=== PATIENT | male | born 1990 | race Caucasian/White ===

== ENCOUNTER → 2017-08-03 09:51 | Outpatient (CLI) | payer SELFPAY ==
[2017-08-03 10:15] LABS: Basophils % 0.4 % (0.1-2.0); Eosinophils # 0.3 K/mm3 (0.0-0.4); Eosinophils % 3.4 % (0.1-12.0); Hematocrit 49.3 % (42.0-52.0); Hemoglobin 15.8 g/dL (14.1-18.0); Lymphocytes # 1.1 K/mm3 (0.7-4.5); Lymphocytes % 11.9 K/mm3 (10-50); Mean Corpuscular HGB Conc 32.1 g/dL (31.8-35.4); Mean Corpuscular Hemoglobin 29.5 pg (27.0-31.2); Mean Corpuscular Volume 91.7 fl (80-94); Mean Platelet Volume 7.9 fl (7.4-10.4); Monocytes # 0.6 K/mm3 (0.1-1.0); Monocytes % 6.6 % (1.7-9.3); Neutrophils % 77.6 % (37.0-80.0); Platelet Count 143 K/mm3 (142-424); Red Blood Count 5.38 M/mm3 (4.60-6.20); Red Cell Distribution Width 12.1 % (11.5-17.5)
== END ==
PROVIDERS: Visit Provider Nurse Practitioner Family
DX: R06.02 Shortness of breath (principal)
CPT/HCPCS: 85025

== ENCOUNTER → 2019-10-31 09:41 | Outpatient (CLI) | payer BC, SELFPAY ==
[2019-10-31 10:22] LABS: Basophils % 0.7 % (0.1-2.0); Eosinophils # 0.4 K/mm3 (0.0-0.4); Eosinophils % 5.7 % (0.1-12.0); Hematocrit 46.3 % (42.0-52.0); Hemoglobin 16.1 g/dL (14.1-18.0); Lymphocytes # 1.2 K/mm3 (0.7-4.5); Mean Corpuscular HGB Conc 34.8 g/dL (31.8-35.4); Mean Corpuscular Hemoglobin 31.2 pg (27.0-31.2); Mean Corpuscular Volume 89.7 fl (80-94); Mean Platelet Volume 8.1 fl (7.4-10.4); Monocytes # 0.5 K/mm3 (0.1-1.0); Neutrophils # 4.6 K/mm3 (1.8-7.8); Neutrophils % 67.7 % (37.0-80.0); Platelet Count 155 K/mm3 (142-424); Red Blood Count 5.16 M/mm3 (4.60-6.20); Red Cell Distribution Width 12.5 % (11.5-17.5); White Blood Count 6.7 K/mm3 (4.8-10.8)
[2019-11-01 18:36] LABS: Covid-19 Nasal PCR Sendout Lex NOT DETECTED
== END ==
PROVIDERS: PCP Family Medicine; Visit Provider Family Medicine
DX: Z03.818 Encounter for observation for suspected exposure to other biological agents ruled out (principal)
CPT/HCPCS: 36415; 85025; U0004

== ENCOUNTER → 2020-02-10 13:35 | Outpatient (CLI) | payer BC, SELFPAY ==
[2020-02-12 09:00] LABS: Covid-19 Nasal PCR Sendout UK Not Detected
== END ==
PROVIDERS: PCP Family Medicine; Referring Provider Family Medicine; Visit Provider Family Medicine
DX: Z03.818 Encounter for observation for suspected exposure to other biological agents ruled out (principal)
CPT/HCPCS: U0003

== ENCOUNTER → 2020-02-13 11:57 | Outpatient (CLI) | payer BC, SELFPAY ==
[2020-02-13 13:14] LABS: Adenovirus,PCR Not Detected (NotDetected); Bordetella Pertussis Not Detected (NotDetected); Chlamydophila Pneumoniae, PCR Not Detected (NotDetected); Coronavirus 19, PCR Not Detected (NotDetected); Coronavirus 229E Not Detected (NotDetected); Coronavirus NL63 Not Detected (NotDetected); Coronavirus OC43 Not Detected (NotDetected); Coronovirus HKU1,PCR Not Detected (NotDetected); Human Metapneumovirus Not Detected (NotDetected); Influenza A, PCR Not Detected (NotDetected); Influenza AH1, 2009 Not Detected (NotDetected); Influenza AH1, PCR Not Detected (NotDetected); Influenza AH3,PCR Not Detected (NotDetected); Influenza B, PCR Not Detected (NotDetected); Mycoplasma Pneumoniae, PCR Not Detected (NotDetected); Parainfluenza 1, PCR Not Detected (NotDetected); Parainfluenza 2, PCR Not Detected (NotDetected); Parainfluenza 3, PCR Not Detected (NotDetected); Parainfluenza 4, PCR Not Detected (NotDetected); Respiratory Syncytial Virus Not Detected (NotDetected); Rhinovirus/Enterovirus Not Detected (NotDetected)
[2020-02-13 13:35] LABS: Basophils % 0.3 % (0.1-2.0); Eosinophils % 0.1 % (0.1-12.0); Hematocrit 51.7 % (42.0-52.0); Hemoglobin 17.7 g/dL (14.1-18.0); Lymphocytes # 0.8 K/mm3 (0.7-4.5); Lymphocytes % 8.9 % (10-50); Mean Corpuscular HGB Conc 34.2 g/dL (31.8-35.4); Mean Corpuscular Hemoglobin 31.4 pg (27.0-31.2); Mean Corpuscular Volume 91.8 fl (80-94); Mean Platelet Volume 8.3 fl (7.4-10.4); Monocytes # 0.6 K/mm3 (0.1-1.0); Monocytes % 6.8 % (1.7-9.3); Neutrophils # 7.8 K/mm3 (1.8-7.8); Neutrophils % 83.9 % (37.0-80.0); Platelet Count 138 K/mm3 (142-424); Red Blood Count 5.63 M/mm3 (4.60-6.20); Red Cell Distribution Width 12.4 % (11.5-17.5); White Blood Count 9.3 K/mm3 (4.8-10.8)
[2020-02-13 15:07] LABS: Chloride 100 mmol/L (98-107); Sodium 135 mmol/L (136-145)
[2020-02-13 15:10] LABS: Blood Urea Nitrogen 20 mg/dl (9-20); Calcium 9.7 mg/dl (8.4-10.2); Carbon Dioxide 27 mmol/L (22.0-30.0); Estimated Glomerular Filt Rate 78 ml/min (>60); GFR (African American) 94 ML/MIN (>60); Glucose 89 mg/dl (74-100)
== END ==
PROVIDERS: PCP Family Medicine; Visit Provider Family Medicine
DX: Z03.818 Encounter for observation for suspected exposure to other biological agents ruled out (principal)
CPT/HCPCS: 36415; 80048; 85025; 87581; 87633; 87798

== ENCOUNTER → 2020-03-16 13:40 | Outpatient (CLI) | payer BC, SELFPAY ==
--- NOTE | 2020-03-16 13:42 | XR_ITS ---
PROCEDURE: XR CHEST PORTABLE CLINICAL HISTORY: COVID TESTING Cough COMPARISON: No exams were available for comparison FINDINGS: The cardiomediastinal silhouette and pulmonary vascularity are within normal limits. The lungs are clear without infiltrates, suspicious nodules, or pleural effusions. No acute bony abnormalities. IMPRESSION: No acute findings. Dictated by: Darrin Fisher MD 03/16/2020 14:19 Darrin Fisher MD in [place] 03/16/2020 14:19
[2020-03-16 14:13] LABS: Adenovirus,PCR Not Detected (NotDetected); Bordetella Pertussis Not Detected (NotDetected); Chlamydophila Pneumoniae, PCR Not Detected (NotDetected); Coronavirus 19, PCR Not Detected (NotDetected); Coronavirus 229E Not Detected (NotDetected); Coronavirus NL63 Not Detected (NotDetected); Coronavirus OC43 Not Detected (NotDetected); Coronovirus HKU1,PCR Not Detected (NotDetected); Human Metapneumovirus Not Detected (NotDetected); Influenza A, PCR Not Detected (NotDetected); Influenza AH1, 2009 Not Detected (NotDetected); Influenza AH1, PCR Not Detected (NotDetected); Influenza AH3,PCR Not Detected (NotDetected); Influenza B, PCR Not Detected (NotDetected); Mycoplasma Pneumoniae, PCR Not Detected (NotDetected); Parainfluenza 1, PCR Not Detected (NotDetected); Parainfluenza 2, PCR Not Detected (NotDetected); Parainfluenza 3, PCR Not Detected (NotDetected); Parainfluenza 4, PCR Not Detected (NotDetected); Respiratory Syncytial Virus Not Detected (NotDetected); Rhinovirus/Enterovirus Not Detected (NotDetected)
[2020-03-16 14:29] LABS: Basophils % 0.9 % (0.1-2.0); Eosinophils # 0.3 K/mm3 (0.0-0.4); Hematocrit 48.5 % (42.0-52.0); Hemoglobin 16.3 g/dL (14.1-18.0); Lymphocytes # 1.4 K/mm3 (0.7-4.5); Lymphocytes % 31.2 % (10-50); Mean Corpuscular HGB Conc 33.6 g/dL (31.8-35.4); Mean Corpuscular Hemoglobin 30.6 pg (27.0-31.2); Mean Corpuscular Volume 91.1 fl (80-94); Mean Platelet Volume 7.8 fl (7.4-10.4); Monocytes # 0.2 K/mm3 (0.1-1.0); Monocytes % 5.1 % (1.7-9.3); Neutrophils # 2.5 K/mm3 (1.8-7.8); Neutrophils % 56.8 % (37.0-80.0); Platelet Count 159 K/mm3 (142-424); Red Blood Count 5.33 M/mm3 (4.60-6.20); Red Cell Distribution Width 13.2 % (11.5-17.5); White Blood Count 4.5 K/mm3 (4.8-10.8)
== END ==
PROVIDERS: PCP Family Medicine; Visit Provider Family Medicine
DX: Z20.822 Contact with and (suspected) exposure to COVID-19 (principal)
CPT/HCPCS: 71045; 85025; 87581; 87633; 87798

== ENCOUNTER 2020-11-06 08:30 | Outpatient (RCR) | payer BC, SELFPAY ==
--- NOTE | 2020-10-10 17:09 | HMH.PTOPEV ---
PT Outpatient Evaluation Rehab PT Outpatient Evaluation Start: 10/10/20 15:56 Freq: Status: Active Protocol: Document 10/10/20 15:57 LIVAN (Rec: 10/10/20 17:09 LIVAN [id number]) Electronically Signed By Dennys Biggs PT 10/10/20 15:57 Outpatient Therapy Subjective History Subjective History This is the initial Physical Therapy evaluation for Jose R Ortez. Pt reports to PT for c/o R shoulder pain. Pt reports pain began approximately 1-2 months ago when he began playing recreational softball. Pt reports he began having global R shoulder pain, but noted one throw from the outfield, he felt sharp pain shoot from shoulder to the hand. Pt also states he began having elbow pain shortly after his shoulder started hurting. Pt reports without activity he has no shoulder pain. Pt also states he feels he has a catch when he raises his arm . Chief Complaint Pain,Catches/Locks Symptom Type Ache,Throb Symptoms Relieved By Rest/Positioning,Ice,OTC Meds Symptoms Aggravated By Physical Activity,Lifting Prior Functional Limitations None Current Functional Limitations Recreation Activity Symptom Description Intermittent Level of pain today (0-10) 0 Pain scale - at its best (0-10) 0 Pain scale - at its worst (0-10) 8 Shoulder/Elbow Eval Shoulder Objective Measurements Palpation Tenderness tenderness shoulder exam standard right tenderness over the bicipital tendon right shoulder exam standard Shoulder Palpation Findings Tenderness,Trigger Point Shoulder ROM Bilateral pain with active ROM shoulder exam right standard full ROM shoulder exam standard bilateral Shoulder MMT Right Shoulder Abduction Strength Grade 4 Good Shoulder External Rotation Strength 4 Good Grade Supraspinatus Strength Grade 4- Good- Shoulder Strength Patient Testing Sitting Position Shoulder Special Tests Shoulder Cross-Over Impingement Test Positive Right Shoulder Empty Can (Supraspinatus) Test Positive Right Shoulder Castano-Jagjit Impingement Positive Right Test Shoulder Low Relocation Test Positive Right Shoulder Posterior Load a
== END 2020-11-06 08:35 | disposition home or self-care (01) ==
LOC: PT 08:30
PROVIDERS: PCP Family Medicine; Visit Provider Physician Assistant
DX: M25.511 Pain in right shoulder (principal); M77.01 Medial epicondylitis, right elbow
CPT/HCPCS: 97014; 97033; 97110; 97163; 97164; G0283

== ENCOUNTER → 2021-01-05 09:27 | Outpatient (CLI) | payer BC, SELFPAY ==
[2021-01-05 12:26] LABS: Basophils # 0.1 K/mm3 (0-0.2); Basophils % 0.9 % (0.1-2.0); Eosinophils # 0.3 K/mm3 (0.0-0.4); Eosinophils % 4.6 % (0.1-12.0); Hematocrit 50.4 % (42.0-52.0); Hemoglobin 16.2 g/dL (14.1-18.0); Lymphocytes # 1.6 K/mm3 (0.7-4.5); Lymphocytes % 24.4 % (10-50); Mean Corpuscular HGB Conc 32.2 g/dL (31.8-35.4); Mean Corpuscular Hemoglobin 30.7 pg (27.0-31.2); Mean Corpuscular Volume 95.5 fl (80-94); Mean Platelet Volume 8.8 fl (7.4-10.4); Monocytes # 0.3 K/mm3 (0.1-1.0); Monocytes % 5.1 % (1.7-9.3); Neutrophils # 4.1 K/mm3 (1.8-7.8); Neutrophils % 64.9 % (37.0-80.0); Platelet Count 164 K/mm3 (142-424); Red Blood Count 5.27 M/mm3 (4.60-6.20); Red Cell Distribution Width 12.5 % (11.5-17.5); White Blood Count 6.3 K/mm3 (4.8-10.8)
== END ==
PROVIDERS: PCP Family Medicine; Visit Provider Physician Assistant
DX: Z20.822 Contact with and (suspected) exposure to COVID-19 (principal)
CPT/HCPCS: 85025; C9803; U0003; U0005

== ENCOUNTER → 2021-03-20 10:09 | Outpatient (CLI) | payer BC, SELFPAY | PROVIDERS: Visit Provider Nurse Practitioner | DX: Z20.822 Contact with and (suspected) exposure to COVID-19 (principal) | CPT/HCPCS: C9803; U0003; U0005 ==

== ENCOUNTER 2024-12-12 14:39 | Outpatient (CLI) | payer OTHER, SELFPAY ==
--- OUTSIDE RECORDS SUMMARY | 2023-07-08 05:15 | XMS_ITS ---
Author Organization [facility] Address [address] [facility] [place] [id number] Care Team Providers Care Toy Designer Name Role Phone Sanford Bustamante Primary Care Provider [phone] Smith Murphy Unavailable [phone] Allergies No Known Allergies Results Component Value Reference Range Notes CBC Venipuncture (in house) Reviewed date:07/08/2023 03:10:16 PM Interpretation: Performing Lab: Notes/Report: wbc 4.4 3.5 - 10 lymph 32.8 15 - 50 mid 7.0 2 - 15 gran 60.2 35 - 80 rbc 5.49 3.5 - 5.5 hgb 16.8 11.5 - 16.5 hct 52.5 35 - 55 mcv 95.5 75 - 100 mch 30.5 25 - 35 mchc 32.0 31 - 38 platlet 131 100 - 400 REASON FOR VISIT sore throat, ear pain, headache, congestion Medications Medication SIG (Take, Route, Frequency, Duration) Notes Start Date End Date Status dexAMETHasone 2 MG 1 tablet Orally ever y 12 hrs; Duration: 5 day(s) 07/08/2023 Active Bactrim DS 800-160 MG 1 tablet Orally Tw o times a day; Duration: 21 days 05/22/2023 Not-Taking Triamcinolone Acetonide 0.1 % 1 application Externally Two times a day 05/22/2023 Active Albuterol Sulfate HFA 108 (90 Base) MCG/ACT 1-2 puff(s) inhaled every 6 hours, prn 05/29/2022 Active Flonase Allergy Relief 50 MCG/ACT 1 spray in each nostril Nasally Once a day 10/24/2022 Active Problems Problem Type SNOMED Code ICD Code Onset Dates Problem Status W/U Status Risk Notes Problem Allergic rhinitis (47019792) Allergic rhinitis, unspecified seasonality, unspecified trigger (J30.9) Active confirmed Vital Signs Blood pressure systolic 124 mm Hg 07/08/19 24 Blood pressure diastolic 82 mm Hg 024 Heart Rate 70 /min 07/08/2023 Height 74.25 in 07/08/2023 Weight 187.8 lbs 07/08/2023 BMI 23.95 kg/m2 07/08/2023 Encounters Encounter Location Date Provider Diagnosis [facility] [address] [facility] [address] [place] [id number] 07/08/2023 Smith Murphy Sore throat J02.9 an d Allergic rhinitis, unspecified seasonality, unspecified trigger J30.9 Assessments Encounter Date Diagnosis (ICD Code) Assessment Notes Treatment Notes Treatment Clinical Notes Section Notes 07/08/2023 Sore throat (ICD-10 - J02.9) 07/08/2023 Allergic rhinitis, unspecified seasonality, unspecified trigger (ICD-10 - J30.9) Plan Of Treatment Medication Medication Name Sig Start Date Stop Date Notes dexAMETHasone 2 MG 1 tablet Orally ever y 12 hrs; Duration: 5 day(s) 07/08/2023 Next Appt Details Follow Up: via phone to brenden conroy progress, Reason: Provider Name:Smith Ang ry, 12/12/2024 02:15:00 PM, [address] [facility] [address], [address], [place], [id number], Progress Notes * Juancarlos ORTEZB: 9 (33 yo M)Acc No.[id number]:07/08/2023 Progress Notes Patient: Jose R WATERMAN Provider: Isiah Murphy M.D. :1990 A ge:32 Y S ex:Male Date:07/08/2023 Address:[address] [place] [address], [place] [id number] Pcp:Sanford Bustamante Subjective: * Chief Complaints: * 1 . Sore throat, ear pain, headache, congestion. * HPI: E NT/respiratory: 32 year old male presents with c/o sore throat P t complains of sore throat for about a week. Asscoiated with nasal congestion and ear pain. Pt states symptoms have improved a little bit today but lt ear and lt side of throat are sore. * ROS: D ERMATOLOGY: no R bhavik. n o H julian. G ASTROENTEROLOGY: no N ausea. n o V omiting. U ROLOGY: no D ifficulty urinating. n o B lood in urine. * Medical History: M edical History Verified. * Surgical History: D enies Past Surgical History. * Hospitalization/Major Diagno stic Procedure: [facility] - foreign object in eye 08/22/2015. * Family History: F ather: alive, diagnosed with Hypertension. M other: alive. P aternal Grand Father: . P aternal Grand Mother: . M aternal Grand Father: alive, diagnosed with Diabetes, Cancer. M aternal Grand Mother: alive. 1 brother(s) - healthy. 2 daughter(s) - healthy. . * Social History: C URRENT TOBACCO USE: No . C affeine: yes, frequency: coffee, tea, soda. Home smoke detector use: yes. Marital Status: . Alcohol: Yes, Type: , Frequency: ,Years: , Determination:, occasional. Sexually active: yes. * Medications: T aking Albuterol Sulfate HFA 108 (90 Base) MCG/ACT Aerosol Solution 1-2 puff(s) inhaled every 6 hours, prn , Taking Flonase Allergy Relief 50 MCG/ACT Suspension 1 spray in each nostril Nasally Once a day , Taking Triamcinolone Acetonide 0.1 % Cream 1 application Externally Two times a day , Not-Taking Bactrim DS 800-160 MG Tablet 1 tablet Orally Two times a day , Discontinued QUEtiapine Fumarate 25 MG Tablet 1 tab(s) orally once daily at bed time , Discontinued Promethazine-DM 6.25-15 MG/5ML Syrup 5 ml Orally every 6 hrs as needed , Discontinued Benzonatate 200 MG Capsule 1 capsule Orally Three times a day as needed , Medication List reviewed and reconciled with the patient * Allergies: N .K.D.A. Objective: * Vitals: W t:187.8, Temp:98.2, BP:124/82, HR:70, O2 Sat:98% on RA, Nurse:cyndi, Ht: 74.25, BMI:23.95. * Examination: E NT/Respiratory: General Appearance: N AD. E yes: P ERRLA, sclera clear. E ars: a uditory canals normal bilaterally, TM's WNL. O ral cavity : m inimal erythema without exudate on pharynx. N whitney : n o cervical lymphadenopathy. H eart : R RR, normal S1 S2. L ungs: c lear to auscultation bilaterally. Assessment: * Assessment: 1. S ore throat - J02.9 (Primary) 2 . A llergic rhinitis, unspecified seasonality, unspecified trigger - J30.9 Plan: * Treatment: Value Reference Range w bc 4.4 3.5 - 10 * l ymph 32.8 15 - 50 * m id 7.0 2 - 15 * g ran 60.2 35 - 80 * r bc 5.49 3.5 - 5.5 * h gb 16.8 11.5 - 16.5 * h ct 52.5 35 - 55 * m cv 95.5 75 - 100 * m ch 30.5 25 - 35 * m chc 32.0 31 - 38 * p latlet 131 100 - 400 * Gisele Christian 07/08/2023 9:14:42 AM > , Provider reviewed results while patient in office. 2.?Allergic rhinitis, unspecified seasonality, unspecified trigger? Start dexAMETHasone Tablet, 2 MG, 1 tablet, Orally, every 12 hrs, 5 day(s), 10 Tablet, Refills 0. ? * Procedure Codes: 8 5025 CBC WITH AUTO DIFF, 58963 VENIPUNCT, ROUTINE* * Follow Up: v ia phone to report progress * Images: Billing Information: * Visit Code: 45085 Office Visit, Est Pt., Level 3. * Procedure Codes: 36483 CBC WITH AUTO DIFF. 79804 VENIPUNCT, ROUTINE*. * Electronic signature of Payton Murphy MD on 12/12/2024 at 02:46 PM EDT Sign off status: Pending * Provider: Isiah Murphy M.D. Date: 0 07/08/2023 Generated for Carmen fairchild/Faxing/eTransmitting on: 1 02:46 PM EDT History and Physical Notes * HPI (History of Present Illness) Category Sub-Category Detail Notes Category Not es ENT/respiratory sore throat Pt complains of sore throat for about a week. Asscoiated with nasal congestion and ear pain. Pt states symptoms have improved a little bit today but lt ear and lt side of throat are sore Examination Category Sub-Category Detail Notes Category Not es ENT/Respiratory Oral cavity : minimal erythema without exudate on pharynx Ears: auditory canals norm al bilaterally, TM's WNL Neck : no cervical lymphade nopathy Heart : RRR, normal S1 S2 Lungs: clear to auscultatio n bilaterally General Appearance: NAD Eyes: PERRLA, sclera clear
--- OUTSIDE RECORDS SUMMARY | 2023-09-11 07:30 | XMS_ITS ---
Author Organization [facility] Address [address] [facility] [address] [place] [id number] Care Team Providers Care Banquet Bartender Name Role Phone Sanford Bustamante Primary Care Provider [phone] Smith Murphy Unavailable [phone] Allergies No Known Allergies Results Component Value Reference Range Notes Urinalysis - Inhouse Reviewed date:09/11/2023 12:07:07 PM Interpretation: Performing Lab: Notes/Report: Color/Clarity dark yellow/clear Leuk neg Nitrite neg Urobili 3.2 Protein trace pH 6.5 Blood neg Sp. Gr. 1.025 Ketone neg Bili neg Gluc neg REASON FOR VISIT CDL , Physical Medications Medication SIG (Take, Route, Frequency, Duration) Notes Start Date End Date Status Flonase Allergy Relief 50 MCG/ACT 1 spray in each nostril Nasally Once a day 10/24/2022 Active Albuterol Sulfate HFA 108 (90 Base) MCG/ACT 1-2 puff(s) inhaled every 6 hours, prn 05/29/2022 Active Vital Signs Blood pressure systolic 120 mm Hg 09/11/19 24 Blood pressure diastolic 80 mm Hg 024 Heart Rate 65 /min 09/11/2023 Height 74.25 in 09/11/2023 Weight 192.6 lbs 09/11/2023 BMI 24.56 kg/m2 09/11/2023 Encounters Encounter Location Date Provider Diagnosis [facility] [address] [place] [id number] 09/11/2023 Smith Murphy 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 :1990 A ge:32 Y S ex:Male Date:09/11/2023 Address:[address] [place] [address] [address], [facility] Pcp:Sanford Bustamante Subjective: * Chief Complaints: * 1 . CDL , Physical. 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 * ROS: D ERMATOLOGY: no R bhavik. n o H julian. G ASTROENTEROLOGY: no N ausea. n o V omiting. U ROLOGY: no D ifficulty urinating. n o B lood in urine. * Medical History: M edical History Verified. * Surgical History: D enies Past Surgical History. * Hospitalization/Major Diagno stic Procedure: H ER - foreign object in eye 08/22/2015. [...] each nostril Nasally Once a day , Discontinued Triamcinolone Acetonide 0.1 % Cream 1 application Externally Two times a day , Discontinued dexAMETHasone 2 MG Tablet 1 tablet Orally every 12 hrs , Discontinued Bactrim DS 800-160 MG Tablet 1 tablet Orally Two times a day , Medication List reviewed and reconciled with the patient * Allergies: N .K.D.A. Objective: * Vitals: W t:192.6, Temp:98.3, BP:120/80, HR:65, Nurse:[place], Ht: 74.25, Visual Acuity: Left eye:20/13, Right eye:20/13, Both eyes:20/10, Color:normal, Comments:Without glasses, BMI:24.56. * Examination: G eneral Examination: General Appearance: N AD. H EENT: u nremarkable.?Oral cavity: n o lesions, mucosa moist and WNL, no erythema. N whitney: s upple, no lymphadenopathy. C hest: n ormal shape and expansion. H eart: R SR. L ungs: c lear to auscultation. A bdomen: bowel sounds present, soft and nontender. N eurologic Exam: I ntact, gait normal. S kin: n ormal, no rash. P eripheral pulses: n ormal (2+) bilaterally. E xtremities: n o leg edema. Assessment: * Assessment: 1. E ncounter for Department of Transportation (DOT) examination for tee license - Z02.4 (Primary) Plan: * Treatment: Value Reference Range C olor/Clarity dark yellow/clear * L euk neg * N itrite neg * U robili 3.2 * P rotein trace * p H 6.5 * B lood neg * S p. Gr. 1.025 * K etone neg * B stefano neg * G ranjit neg * Gisele Christian 09/11/2023 11:22:5 4 AM > , Provider reviewed results while patient in office. * Procedure Codes: 8 1002 Urinalysis, no micro, 02914 VISUAL ACUITY SCREEN * Follow Up: p rn * Images: Billing Information: * Visit Code: 42740 Preventive Care Est Pt 18-39. * Procedure Codes: 37112 Urinalysis, [place]. [address] VISUAL ACUITY SCREEN. * Electronic signature of Payton Murphy MD on 12/12/2024 at 02:46 PM EDT Sign off status: Pending * Provider: Isiah Murphy M.D. 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
--- NOTE | 2024-12-12 14:46 | XR_ITS ---
FINAL REPORT CLINICAL HISTORY: PAIN..fall no prior films FINDINGS: AP, oblique, and lateral views of the right wrist were obtained. There is no prior exam for comparison. There is no acute fracture or dislocation. The joint spaces are preserved. The soft tissues are normal. IMPRESSION: No acute osseous abnormality of the right wrist. Reviewed, Interpreted and Dictated by Love Alarcon MD Transcribed by Kaylynn Castaneda Authenticated and [facility]
--- OUTSIDE RECORDS SUMMARY | 2024-12-12 14:47 | XMS_ITS | Patient Health Record ---
[facility] Address [address] [place] [id number] Care Team Providers Care Tow Car Driver Name Role Phone Sanford Bustamante Primary Care Provider Alon Murphyian Unavailable [phone] Allergies No Known Allergies Reason For Referral No Information Medications Medication SIG (Take, Route, Frequency, Duration) Notes Start Date End Date Status Albuterol Sulfate HFA 108 (90 Base) MCG/ACT 1-2 puff(s) inhaled every 6 hours, prn 05/29/2022 Active Flonase Allergy Relief 50 MCG/ACT 1 spray in each nostril Nasally Once a day 10/24/2022 Active Immunizations Vaccine Route Administration Date Status Comme nts COVID 19 Moderna Unknown 10/19/2020 Administered COVID 19 Moderna Unknown 11/16/2020 Administered DT, 7 YEARS OR OLDER Unknown 09/21/2003 Administered Hepatitis A (adult) Unknown 02/16/2018 Administered HEPB VACC PED/ADOL DOSE IM Unknown 05/04/2000 Administe red HEPB VACC PED/ADOL DOSE IM Unknown 07/09/2000 Administe red HEPB VACC PED/ADOL DOSE IM Unknown 02/09/2001 Administe red MMR Unknown 05/04/2000 Administered MMR Unknown 05/04/2000 Administered Tetanus Tdap-Adacel (over 7yrs) IM Intramuscular 04/02/2021 Administered Problems Problem Type SNOMED Code ICD Code Onset Dates Problem Status W/U Status Risk Notes Problem Medial epicondylitis of right elbow (710517236830433) Medial epicondylitis of right elbow (M77.01) Active confirmed Problem Mood disorder (16677307) Mood disorder (F39) Active confirmed Problem Adjustment disorder (02177953) Adjustment disorder, unspecified type (F43.20) Active confirmed Problem Shoulder joint pain (379847250) Acute pain of right shoulder (M25.511) Active confirmed Problem Allergic rhinitis (14426406) Allergic rhinitis, unspecified seasonality, unspecified trigger (J30.9) Active confirmed Vital Signs Heart Rate 75 /min 12/12/2024 Blood pressure diastolic 76 mm Hg 12/12/2024 Height 74.25 in 12/12/2024 Blood pressure systolic 126 mm Hg 12/12/2024 Weight 194.4 lbs 12/12/2024 BMI 24.79 kg/m2 12/12/2024 Encounters Encounter Location Date Provider Diagnosis [facility] [address] [place] [address] [address] [facility] [address] [place] [id number] 12/12/2024 [place] Right wrist pain M25.531 Assessments Encounter Date Diagnosis (ICD Code) Assessment Notes Treatment Notes Treatment Clinical Notes Section Notes 12/12/2024 Right wrist pain (ICD-10 - M25.531) Plan Of Treatment Pending Test Test Name Order Date X ray : Wrist, right 12/12/2024 Next Appt Details Provider Name:Smith Ang ry, 12/12/2024 02:15:00 PM, [address] [place] [address] [address] [facility], [address], [place], [id number], Insurance Providers Payer Name Payer Address Payer Phone Subscriber Number Group Number Insured Name Patient Relationship to Insured Coverage Start Date Coverage End Date [facility] [address] [place] [phone] [id number] Jose R [place] Self - patient is the insured Medical (General) History Surgical History Surgery Date(Month/Year) Hospitalization History Reason Date(Month/Year) [facility] ER - foreign object in eye 6
== END 2024-12-12 23:59 | disposition home or self-care (01) ==
PROVIDERS: PCP Family Medicine; Visit Provider Family Medicine
DX: M25.531 Pain in right wrist (principal); W19.XXXA Unspecified fall, initial encounter
CPT/HCPCS: 73110